=== PATIENT | male | born 1950 | race Caucasian/White ===

== ENCOUNTER → 2019-05-22 | Outpatient (CLI) | payer MEDICARE ==
[~2019-05-22] MED LIST: ASPI-605 PO; INSU100C7 SQ; METO25TA6 PO
[2019-05-25 10:00] VITALS: BP 125/75
== END | disposition home or self-care (01) ==
LOC: CATHLAB 09:38
PROVIDERS: ATTEND Internal Medicine Interventional Cardiology
DX: Z75.3 Unavailability and inaccessibility of health-care facilities (principal)